=== PATIENT | male | born 1970 ===

== ENCOUNTER 2017-02-07 13:37 | Emergency (ER) | payer OTHER ==
[2017-02-08 08:51] LABS: RBC URINE 5 /hpf (0-3); URINE BACTERIA FEW (<OCC); URINE BILIRUBIN NEGATIVE (NEGATIVE); URINE BLOOD SMALL (NEGATIVE); URINE COLOR YELLOW (YELLOW); URINE GLUCOSE (UA) NEG (Normal); URINE KETONE NEGATIVE (NEGATIVE); URINE LEUKOCYTE ESTERASE NEG Leu/uL (Negative); URINE PROTEIN 30 mg/dL (NEGATIVE); URINE UROBILINOGEN 0.2-1.0 mg/dL (0.2-1.0); WBC URINE 3 /hpf (0-5)
--- NOTE | 2017-02-08 09:17 | RAD ---
PROCEDURE: Right elbow HISTORY: COMPARISON: None TECHNIQUE: Standard protocol for this study/examination. FINDINGS: No significant/acute osseous, articular or soft tissue abnormalities. IMPRESSION: No acute findings related to/accounting for the clinical presentation.
--- NOTE | 2017-02-08 09:18 | RAD ---
PROCEDURE: Left hand HISTORY: COMPARISON: None TECHNIQUE: Standard protocol for this study/examination. FINDINGS: No significant/acute osseous, articular or soft tissue abnormalities. IMPRESSION: No acute findings related to/accounting for the clinical presentation.
[2017-02-08 11:41] LABS: GLUCOSE,RANDOM 119 mg/dL (75-110)
[2017-02-08 11:42] LABS: ALB/GLOB RATIO 1.5 (1.0-2.1); ALKALINE PHOSPHATASE 115 U/L (38-126); ALT/SGPT 48 U/L (21-72); AST/SGOT 49 U/L (17-59); BILIRUBIN,TOTAL 0.5 mg/dl (0.2-1.3); BLOOD UREA NITROGEN 18 mg/dl (9-20); CALCIUM 9.3 mg/dL (8.4-10.2); CARBON DIOXIDE 22 mmol/L (22-30); CHLORIDE 106 mmol/L (98-107); GFR AFRICAN-AMERICAN > 60; POTASSIUM 3.8 MMOL/L (3.6-5.0); SODIUM 140 mmol/l (132-148); TOTAL PROTEIN 7.5 G/DL (6.3-8.2)
[2017-02-08 12:59] LABS: BASO % 0.2 % (0.0-2.0); HEMATOCRIT 38.1 % (35.0-51.0); LYMPH # 1.2 K/uL (1.0-4.3); LYMPH % 8.4 % (20.0-40.0); MEAN CELL VOLUME 85.4 fl (80.0-94.0); MEAN CORPUSCULAR HEMOGLOBIN 28.2 pg (27.0-31.0); MEAN PLATELET VOLUME 7.4 fl (7.2-11.7); MONO # 0.6 K/uL (0.0-0.8); MONO % 4.5 % (0.0-10.0); NEUT # 12.4 K/uL (1.8-7.0); NEUT % 86.9 % (50.0-75.0); PLATELET COUNT 158 K/uL (130-400); RED CELL DISTRIBUTION WIDTH 14.6 % (11.5-14.5); WHITE BLOOD COUNT 14.3 K/uL (4.8-10.8)
[2017-02-08 13:03] LABS: NEUTROPHIL 88 % (42-75); TOTAL CELLS COUNTED 100
--- NOTE | 2017-02-08 14:03 | CT ---
PROCEDURE: CT Chest, Abdomen and Pelvis with intravenous contrast HISTORY: COMPARISON: None. TECHNIQUE: IV dose administered: 90 cc Omnipaque 300. Radiation dose: Total exam DLP = 810.50 mGy-cm. This CT exam was performed using one or more of the following dose reduction techniques: Automated exposure control, adjustment of the mA and/or kV according to patient size, and/or use of iterative reconstruction technique. FINDINGS: CT CHEST WITH CONTRAST: LUNGS: Clear. No nodule, mass or consolidation. MEDIASTINUM: Unremarkable. Normal caliber aorta and pulmonary arterial trunk. No aortic dissection. Normal size heart. LYMPH NODES: Unremarkable. PLEURA: Unremarkable. No pneumothorax. No pleural fluid. BONES: Lytic lesions throughout visualized lumbar spine, sternum, incompletely visualized humeral abnormalities/lytic lesions. OTHER FINDINGS: None. CT ABDOMEN AND PELVIS: LIVER: Hepatic steatosis. No focal masses. No intrahepatic bile duct dilatation or perihepatic ascites. GALLBLADDER AND BILE DUCTS: Unremarkable. PANCREAS: Unremarkable. No gross lesion or ductal dilatation. SPLEEN: Mild splenomegaly without focal or diffuse abnormality. ADRENALS: Unremarkable. No mass. KIDNEYS AND URETERS: Unremarkable. No hydronephrosis. No solid mass. VASCULATURE: Unremarkable. No aortic aneurysm. BOWEL: Unremarkable. No obstruction. No gross mural thickening. APPENDIX: Normal appendix. PERITONEUM: Unremarkable. No free fluid. No free air. LYMPH NODES: Unremarkable. No enlarged lymph nodes. BLADDER: Unremarkable. REPRODUCTIVE: Unremarkable. BONES: Multiple lytic lesions throughout the visualized lumbosacral spine and pelvis osseous structures without pathologic fracture. Loss of height of L3 and to a lesser extent L2 vertebral bodies without associated paravertebral abnormality or retropulsed fracture fragments. OTHER FINDINGS: IVC filter noted in satisfactory position. IMPRESSION: Widely disseminated primarily lytic metastatic disease thoracolumbar spine, pelvis, sternum. No evidence of acute fracture. No acute findings in the chest, abdomen, retroperitoneum or pelvis.
--- NOTE | 2017-02-08 14:05 | CT ---
PROCEDURE: CT HEAD WITHOUT CONTRAST. HISTORY: Trauma COMPARISON: None available. TECHNIQUE: Axial computed tomography images were obtained through the head/brain without intravenous contrast. Radiation dose: Total exam DLP = 830.81 mGy-cm. This CT exam was performed using one or more of the following dose reduction techniques: Automated exposure control, adjustment of the mA and/or kV according to patient size, and/or use of iterative reconstruction technique. FINDINGS: HEMORRHAGE: No intracranial hemorrhage. BRAIN: No mass effect or edema. No atrophy or chronic microvascular ischemic changes. VENTRICLES: Unremarkable. No hydrocephalus. CALVARIUM: Unremarkable. PARANASAL SINUSES: Unremarkable as visualized. No significant inflammatory changes. MASTOID AIR CELLS: Unremarkable as visualized. No inflammatory changes. OTHER FINDINGS: None. IMPRESSION: No intracranial hemorrhage. Unremarkable CT examination of the head.
--- NOTE | 2017-02-08 22:58 | CARD ---
APPROVED REPORT EKG Measurement Heart [id number] <Conclusion> Normal sinus rhythm Normal ECG
--- NOTE | 2017-02-11 13:55 | CT ---
PROCEDURE: CT Cervical Spine without contrast HISTORY: Recent trauma, fell off scaffolding approximately 15 feet. Relevant medical history: Unspecified cancer of the colon. COMPARISON: None available. TECHNIQUE: Axial computed tomography images were obtained of the cervical spine without the use of intravenous c ontrast. Coronal and sagittal reformatted images were created and reviewed. Radiation dose: Total exam DLP = not provided. mGy-cm.print This CT exam was performed using one or more of the following dose reduction techniques: Automated ex posure control, adjustment of the mA and/or kV according to patient size, and/or use of iterative rec onstruction technique. FINDINGS: VERTEBRAE: Normal vertebral body heights and alignment. Small lytic lesions, lucencies scattered throughout the vertebral bodies and perhaps base of skull. There is no extradural impression upon the spinal cord o r spinal canal. DISCS/SPINAL CANAL/NEURAL FORAMINA: No significant central canal or neural foraminal stenosis. Discs heights are grossly preserved. PARASPINAL SOFT TISSUES: Unremarkable. OTHER FINDINGS: None. IMPRESSION: No acute findings related to/accounting for the clinical presentation. Multiple small lucencies, lytic areas throughout visualized cervical vertebral bodies. Although unusu al manifestation of colon cancer this should be considered in the appropriate clinical setting with a dditional information not available regarding cell type and prior workup for metastatic disease.
== END 2017-02-07 19:00 | disposition home or self-care (01) ==
LOC: H.ER 13:37 → H.EDERROR 13:37
DX: T14.8 Other injury of unspecified body region (principal); W17.89XA Other fall from one level to another, initial encounter; Y93.9 Activity, unspecified